=== PATIENT | male | born 1970 | race Caucasian/White ===

== ENCOUNTER 2017-05-25 10:49 | Emergency (ER) | payer OTHER ==
--- NOTE | 2017-05-25 11:00 | EDM.PDOC ---
ED HPI GENERAL MEDICAL PROBLEM - General Chief Complaint: Trauma Stated Complaint: TRAUMA, Time Seen by Provider: 05/25/17 10:50 Source of Information: Reports: Patient, EMS, RN, RN Notes Reviewed History Limitations: Reports: No Limitations - History of Present Illness INITIAL COMMENTS - FREE TEXT/NARRATIVE: Arrives from work by ambulance at 1049HRS with pre-arrival trauma alert per EMS notification (see paper chart for trauma alert time). Pt arrives immobilized on long spine board with C-spine immobilization by foam blocking w/velcro straps to the head, and a vacuum splint to the right lower leg. Pt arrives awake, A&O x3, conversant reporting c/o severe B/L lower leg pain sustained prior to arrival from a fall at work from approx. 10' to 12' onto a solid surface. Pt states that he landed "squarely" on his feet. He denies head injury, neck or back pain, LOC, loss of bowel or bladder control, saddle numbness, or motor weakness. Pt reports severe pain at Rt lateral knee, lower leg, and ankle with "pressure" in his toes. Reports severe left ankle and mid-hind foot pain. 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 He denies any significant PMHx other that a fall in the "1989'" which resulted in multiple spinal compression fractures, but had no lasting effects other than occasional back pains. Pt smoke 1PPD x25 years. 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 MOLDER: Reports: IV/IO, Other Medication(s) (Fentanyl 50mcg IVP by EMS ELECTROTYPE MOLDER) - Related Data Allergies Allergy/AdvReac Type Severity Reaction Status Date / Time No Known Allergies Allergy Verified 05/25/17 11:39 Past Medical History Musculoskeletal History: Reports: Fracture (spinal compression fractures) Social & Family History - Family History Family Medical History: Unobtainable - Tobacco Use Smoking Status *Q: Current Every Day Smoker Tobacco Use Within Last Twelve Months: Cigarettes Years of Tobacco use: 25 Packs/Tins Daily: 1 Second Hand Smoke Exposure: No - Caffeine Use Caffeine Use: Reports: Coffee, Soda - Alcohol Use Alcohol Use History: Yes Alcohol Use Frequency: Socially - Recreational Drug Use Recreational Drug Use: No - Living Situation & Occupation Occupation: Employed Review of Systems - Review of Systems Review Of Systems: ROS reveals no pertinent complaints other than HPI. ED EXAM, GENERAL - Physical Exam Exam: See Below Free Text/Narrative:: PRIMARY TRAUMA SURVEY: Arrives in full immobilization on long spinal board, without c-collar, but w/head blocked and velcro strapped. Pt awake, alert, oriented to person, place, and date. Patent nasal and oral airways. Conversant with clear speech. Spontaneous respirations, with lungs CTA B/L. Good color, no cyanosis, intact peripheral pulses at all 4 distal extremities, normal capillary refill time at all four extremities distal digits. Heart RRR, no murmur, no rub. No bleeding. Painful Rt lower leg and ankle, and left ankle and mid-hind foot with swelling and contusion, no obvious deformity. No upper extremity pain, obvious deformity, lacerations, abrasions, swelling, bruising, discoloration, or other signs of injury. Juan Jose pelvis intact, stable and non- tender. Abdomen benign to exam. Chest non-tender anteriorly, no flail chest, crepitus, or subcutaneous emphysema. CN II-XII intact. Skin clean, dry, warm, and intact. Pt was logged rolled with maintenance of c-spine immobilization, shirt removed. No visible injury to back, no vertebral juan jose tenderness. Long spine board removed and pt returned via log roll to supine position on firm foam padded ER gurney. SECONDARY TRAUMA SURVEY FOLLOWS: Exam Limited By: No Limitations General Appearance: Alert, WD/WN, Mild Distress (due to pain) Eye Exam: Bilateral Eye: EOMI, Normal Fundi, Normal Inspection, PERRL Ears: Normal External Exam, Normal Canal, Hearing Grossly Normal, Normal TMs, Other (no hemotympanum) Nose: Normal Inspection, Normal Mucosa, No Blood Throat/Mouth: Normal Inspection, Normal Lips, Normal Teeth, Normal Gums, Normal Oropharynx, Normal Voice, No Airway Compromise Head: Atraumatic, Normocephalic Neck: Normal Inspection (after C-spine cleared by CT scan), Supple, Non-Tender, Full Range of Motion Respiratory/Chest: No Respiratory Distress, Lungs Clear, Normal Breath Sounds, No Accessory Muscle Use, Chest Non-Tender Cardiovascular: Normal Peripheral Pulses, Regular Rate, Rhythm, No Edema, No Gallop, No JVD, No Murmur, No Rub GI/Abdominal: Normal Bowel Sounds, Soft, Non-Tender, No Organomegaly, No Distention, No Abnormal Bruit (Male) Exam: Deferred Rectal (Males) Exam: Deferred Back Exam: Normal Inspection. No: Paraspinal Tenderness, Vertebral Tenderness Extremities: Normal Capillary Refill, Joint Swelling, Leg Pain, Limited Range of Motion, Other (Left ankle and hind foot acutely tender with swelling and bruising, no obvious deformity, skin is intact. Rt lower extremity with mild swelling and acute tenderness to area overlying fibular head. Rt ankle swollen, contused, and acutely tender with decreased ROM due to pain, skin intact.) Neurological: Alert, Oriented, CN II-XII Intact, Normal Cognition, No Motor/ Sensory Deficits Psychiatric: Normal Affect, Normal Mood Skin Exam: Warm, Dry, Intact, No Rash ED TRAUMA PROCEDURES - Splinting Left Lower Extremity Splint Site: left lower leg Post-Procedure NV Status: Normal Splint Material: Fiberglass Splint Design: Posterior Applied & Form Fitted By: Provider Provider Post-Splint Application NV Check: NV Status Normal, Good Position Complications: No Right Lower Extremity Splint Site: right lower extremity Pre-Procedure NV Status: Normal Post-Procedure NV Status: Normal Splint Material: Air Splint (trauma air vacuum splint: foot to thigh) Splint Design: Volar Applied & Form Fitted By: Provider Provider Post-Splint Application NV Check: NV Status Normal, Good Position Complications: No Course - Vital Signs Text/Narrative:: See nurses notes for vitals. - Orders/Labs/Meds Labs: Laboratory Tests 05/25/17 05/25/17 05/25/17 Range/Units 11:02 11:02 11:02 WBC 15.4 H (5.0-10.0) 10^3/uL RBC 5.09 (4.6-6.2) 10^6/uL Hgb 15.0 (14.0-18.0) g/dL Hct 45.3 (40.0-54.0) % MCV 89.0 (80-100) fL MCH 29.5 (27.0-34.0) pg MCHC 33.1 (33.0-35.0) g/dL Plt Count 332 (150-450) 10^3/uL Neut % (Auto) 50.6 (42.2-75.2) % Lymph % (Auto) 37.7 (20.5-50.1) % [place] % (Auto) 7.0 (2-8) % Eos % (Auto) 4.2 H (1.0-3.0) % Baso % (Auto) 0.5 (0.0-1.0) % PT 9.7 (9.0-12.0) SEC INR 1.0 (0.9-1.2) APTT 22.5 (22.0-34.0) SEC Sodium 138 (135-145) mmol/L Potassium 4.2 (3.6-5.0) mmol/L Chloride 104 (101-111) mmol/L Carbon Dioxide 23.0 (21.0-31.0) mmol/L Anion Gap 15.2 BUN 17 (7-18) mg/dL Creatinine 1.1 (0.6-1.3) mg/dL Est Cr Clr Drug Dosing TNP Estimated GFR (MDRD) > 60 BUN/Creatinine Ratio 15.45 Glucose 109 H (74-105) mg/dL Calcium 9.2 (8.4-10.2) mg/dl Total Bilirubin 0.6 (0.2-1.0) mg/dL AST 31 (10-42) IU/L ALT 30 (10-60) IU/L Alkaline Phosphatase 58 (42-121) IU/L Total Protein 6.8 (6.7-8.2) g/dl Albumin 4.2 (3.2-5.5) g/dl Globulin 2.6 Albumin/Globulin Ratio 1.62 Amylase 60 (28-100) U/L Lipase 23 (22-51) U/L Ethyl Alcohol < 5 mg/dL Meds: Medications Discontinued Medications Generic Name Dose Route Start Last Admin Trade Name Freq PRN Reason Stop Dose Admin Diphtheria/Tetanus/Acell Pertussis 0.5 ml 05/25/17 12:06 05/25/17 12:12 Adacel IM 05/25/17 12:07 0.5 ml .ONCE ONE Administration Fentanyl 50 mcg 05/25/17 11:03 05/25/17 11:18 Sublimaze IVPUSH 05/25/17 11:04 50 mcg ONETIME ONE Administration Fentanyl 100 mcg 05/25/17 11:49 05/25/17 11:52 Sublimaze IVPUSH 05/25/17 11:50 100 mcg ONETIME ONE Administration Lactated Ringer's 1,000 mls @ 999 mls/hr 05/25/17 11:03 05/25/17 11:16 Ringers, Lactated IV 05/25/17 12:03 999 mls/hr .BOLUS ONE Administration Iopamidol 100 ml 05/25/17 11:02 05/25/17 11:22 Isovue-300 (61%) IVPUSH 05/25/17 11:03 100 ml ONETIME ONE Administration Nicotine 21 mg 05/25/17 12:06 05/25/17 12:14 Habitrol TRDERM 05/25/17 12:07 21 mg ONETIME ONE Administration Ondansetron HCl 4 mg 05/25/17 11:02 05/25/17 11:17 Zofran IV 05/25/17 11:03 4 mg ONETIME ONE Administration Sodium Chloride 10 ml 05/25/17 11:04 05/25/17 11:41 Saline Flush FLUSH 10 ml ASDIRECTED PRN Administration Keep Vein Open - Radiology Interpretation Free Text/Narrative:: CT lower extremities: Comminuted fractures of the right proximal fibula. Comminuted fractures of the right distal tibia with involvement of the extension to involve the ankle joint. Comminuted fractures of the left calcaneus. See rad report. CT head: No acute findings. See rad report. CT spine cervical: Normal cervical spine CT. See rad report. CT abdomen and pelvis: No evidence of solid organ injury or fractures. See rad report. CT spine lumbar: Normal lumbar spine CT. See rad report. CT spine thoracic: Normal thoracic spine CT. See rad report. CT Results Date: 05/26/17 Departure - Departure Time of Disposition: 12:18 (tranferred by [facility] to Dr. Chaidez at [facility] ) Disposition: DC/Tfer to [facility] 02 Condition: Serious Clinical Impression: Trauma, Work related injury Closed right ankle fracture Qualifiers: Encounter type: initial encounter Qualified Code(s): S82.891A - Other fracture of right lower leg, initial encounter for closed fracture Closed fracture of head of right fibula Qualifiers: Encounter type: initial encounter Qualified Code(s): S82.831A - Other fracture of upper and lower end of right fibula, initial encounter for closed fracture Closed fracture of left calcaneus Qualifiers: Encounter type: initial encounter Calcaneus location: unspecified portion of calcaneus Fracture alignment: displaced Qualified Code(s): S92.002A - Unspecified fracture of left calcaneus, initial encounter for closed fracture - Discharge Information Referrals: PCP,Unobtain [Primary Care Provider] - Forms: ED Department Discharge
[2017-05-25] MEDS ORDERED: Ondansetron 4 MG/2 ML SDV IV ONE (11:02)
[2017-05-25] MEDS ORDERED: Iopamidol 612 MG/ML 100 ML Bottle IVPUSH ONE (11:02)
[2017-05-25] MEDS ORDERED: Lactated Ringers 1,000 ML IV ONE (11:03)
[2017-05-25] MEDS ORDERED: fentaNYL 100 MCG/2 ML SDV IVPUSH ONE ×2 (11:03→11:49)
[2017-05-25] MEDS ORDERED: Sodium Chloride 0.9% 10 ML Syringe FLUSH PRN (11:04)
[2017-05-25 11:30] LABS: CHLORIDE,CL 104 mmol/L (101-111); SODIUM,NA 138 mmol/L (135-145)
[2017-05-25] MEDS ORDERED: Diphtheria,Pertussis(Acell),Tetanus Vaccine 0.5 ML SDV IM ONE (12:06)
[2017-05-25] MEDS ORDERED: Nicotine 21 MG/24 Hr Patch TRDERM ONE (12:06)
== END 2017-05-25 12:18 ==
LOC: DL.ED 10:49
DX: S92.002A Unspecified fracture of left calcaneus, initial encounter for closed fracture (principal); S82.831A Other fracture of upper and lower end of right fibula, initial encounter for closed fracture; S82.891A Other fracture of right lower leg, initial encounter for closed fracture; S82.391A Other fracture of lower end of right tibia, initial encounter for closed fracture; F17.210 Nicotine dependence, cigarettes, uncomplicated; Z23 Encounter for immunization; W17.89XA Other fall from one level to another, initial encounter; Y92.69 Other specified industrial and construction area as the place of occurrence of the external cause; Y99.0 Civilian activity done for income or pay
CPT/HCPCS: 29515; 36415; 70450; 71260; 72125; 72128; 72131; 73700; 74177; 80053; 82150; 83690; 85025; 85610; 85730; 90471; 90715; 96361; 96374; 96375; 96376; 99285; A9270; G0480; J2405; J3010; J7050; J7120; Q9967